=== PATIENT | male | born 1975 | race Caucasian/White ===

== ENCOUNTER 2017-04-11 14:40 | Emergency (ER) | payer MEDICAID, OTHER ==
[~2017-04-11] VITALS: Ht 167.6 cm; Wt 71.5 kg
[2017-04-11 14:41] VITALS: Ht 167.6 cm; Wt 71.5 kg
[2017-04-11] MEDS ORDERED: ONDA4TAB8 PO (15:06)
--- NOTE | 2017-04-11 15:14 | ERA ---
ER Documentation Chief Complaint Date/Time DATE: 04/11/17 TIME: 15:10 Chief Complaint nausea x 1 year every morning but worsened the past week HPI 41-year-old male complaining of 2 year history of vomiting. Patient is coming to be evaluated. Patient has no change in symptoms. Patient describes the vomiting as "normal-looking". Patient denies nausea, diarrhea, constipation odontophagia or dysphagia or shortness of breath or difficulty breathing. Patient denies chest pain or shortness of breath. Patient claims of irregular bowel habits but his last bowel movement was yesterday. Patient describes his bowel habits as episodic "when I need ago but no specific pattern". There are no other social manifestations. ROS All systems reviewed and are negative except as per history of present illness. Medications Home Meds Active Scripts Ondansetron Hcl* (Zofran*) 4 Mg Tablet, 4 MG PO Q6H for NAUSEA AND/OR VOMITING, #30 TAB Prov:SILVIO KENNY PA-C 04/11/17 PMhx/Soc Medical and Surgical Hx: pt denies Medical Hx, pt denies Surgical Hx Hx Alcohol Use: Yes Hx Substance Use: No Hx Tobacco Use: No Smoking Status: Never smoker Physical Exam Vitals Vital Signs Date Time Temp Pulse Resp B/P Pulse Ox O2 Delivery O2 Flow Rate FiO2 04/11/17 14:41 98.0 77 18 182/90 97 Physical Exam Const: Well-developed 41-year-old male in no acute distress sitting up on the bed. Head: Atraumatic Eyes: Normal Conjunctiva ENT: Normal External Ears, Nose and Mouth. Neck: Full range of motion..~ No meningismus. Resp: Clear to auscultation bilaterally Cardio: Regular rate and rhythm, no murmurs Abd: Soft, non tender, non distended. Normal bowel sounds. No tenderness in any quadrant no palpable pulsating masses. Liver edge is not appreciated. Percussion was within normal limits in all 4 quadrants. Skin: No petechiae or rashes Back: No midline or flank tenderness Ext: No cyanosis, or edema Neur: Awake and alert Psych: Normal Mood and Affect Procedures/MDM Patient presents for 2 year history of vomiting. At this time I have very low suspicion for gastritis, mesenteric ischemia, hernia, or infectious disorder. This is a chronic condition that needs to be managed outpatient. Will give patient a list of clinics/veterinary technician assistant that he can be referred to. Patient is stable well-appearing with a an unremarkable visible exam. Will be discharged home with return precautions. Departure Diagnosis: Primary Impression: Vomiting Qualified Code: R11.11 - Vomiting without nausea, intractability of vomiting not specified, unspecified vomiting type Condition: Stable Patient Instructions: Vomiting (6Y-Adult) Referrals: TESS ZALDIVAR MD,SHABANA MINOR,HUGO QUINTANA,NATIVIDAD ROCHE,ANNAMARIA JOHNSON,ADEN GILLIS,ISAAC OSORIO,AXEL ARROYO,MIL HERNANDEZ,AXEL ALLEN,FRANCIA ANGELA,EUNICE SALAZAR,[facility] YOU HAVE RECEIVED A MEDICAL SCREENING EXAM AND THE RESULTS INDICATE THAT YOU DO NOT HAVE A CONDITION THAT REQUIRES URGENT TREATMENT IN THE EMERGENCY DEPARTMENT. FURTHER EVALUATION AND TREATMENT OF YOUR CONDITION CAN WAIT UNTIL YOU ARE SEEN IN YOUR DOCTORS OFFICE WITHIN THE NEXT 1-2 DAYS. IT IS YOUR RESPONSIBILITY TO MAKE AN APPOINTMENT FOR FOLOW-UP CARE. IF YOU HAVE A PRIMARY DOCTOR --you should call your primary doctor and schedule an appointment IF YOU DO NOT HAVE A PRIMARY DOCTOR YOU CAN CALL OUR PHYSICIAN REFERRAL HOTLINE AT IF YOU CAN NOT AFFORD TO SEE A PHYSICIAN YOU CAN CHOSE FROM THE FOLLOWING [facility] [address] [facility] [address] [facility] [facility] [address] [facility]. [facility] [address] [facility] [facility] [address] [facility]. [facility] [address] Additional Instructions: Follow up with your PCP within the next 1-3 days for a more thorough evaluation and a possible referral to a specialist. Return the the emergency department immediately if symptoms worsen or change. If you have any questions regarding medications, ask your pharmacist or us before you leave. If any adverse reactions occur while taking your medications, discontinue the treatment and return to the emergency department immediately. Take your medications as directed, and complete the entire course of treatment. SILVIO KENNY PA-C April 11, 2017 15:14
== END 2017-04-11 15:12 | disposition home or self-care (01) ==
LOC: FTE 14:40
DX: R11.11 Vomiting without nausea (principal)
CPT/HCPCS: 99283